=== PATIENT | female | born 1985 | race Caucasian/White ===

== ENCOUNTER 2022-06-20 19:25 | Inpatient (IN) | payer MEDICAID, SELFPAY ==
[2022-06-20 19:54] VITALS: PULSE 111; O2SAT 99
[2022-06-20 19:55] VITALS: TEMP 36.9
[2022-06-20 19:57] VITALS: BP 131/86; PULSE 113
[2022-06-20] MEDS: Lactated Ringers 1,000 ML 50 ML IV (20:00)
[2022-06-20 20:05] VITALS: BMI 29.0
[2022-06-20 20:28] LABS: Absolute Lymphocyte Count 2.04 X10^3/uL (0.83-4.51); Absolute Neutrophil Count 8.5 X10^3/uL (2.0-7.7); Basophil# 0.04 X10^3/uL; Basophil% 0.3 % (0-1); Eosinophil# 0.24 X10^3/uL; Hematocrit 33.3 % (37-47); Lymphocyte # 2.04 X10^3/ul (0.83-4.51); Lymphocyte % 17.3 % (19-41); Mean Corpuscular Hgb 27.8 pg (27.0-32.0); Mean Corpuscular Volume 84.1 fL (81-99); Mean Platelet Vol. 10.6 fl (6.2-12.0); Monocyte# 0.96 X10^3/uL; Monocyte% 8.1 % (0-10); NRBC Flagged by Analyzer 0 % (0-5); Neutrophil # 8.46 X10^3/uL (2.7-7.7); Neutrophil % 71.6 % (47-70); Platelet Count 303 K/mm3 (150-450); RBC Distribution Width CV 13.3 % (11.6-14.6); RBC Distribution Width SD 41.2 fl (35.1-43.9); Red Blood Count 3.96 M/mm3 (4.2-5.4); White Blood Count 11.8 K/mm3 (4.4-11.0)
[2022-06-20] MEDS: Ondansetron 4 MG/2 ML Vial IV (20:51)
[2022-06-20 20:57] LABS: Amphetamine Urine VISTA NEGATIVE (<1000 ng/mL); Barbiturate Urine VISTA NEGATIVE (< 200 ng/mL); Benzodiazepine Urine VISTA NEGATIVE (< 200 ng/mL); Cocaine Urine VISTA NEGATIVE (< 300 ng/mL); Ecstacy Urine VISTA NEGATIVE (< 500 ng/mL); Methadone Urine VISTA NEGATIVE (< 300 ng/mL); PCP Urine VISTA NEGATIVE (< 25 ng/mL); THC Urine VISTA POSITIVE (< 50 ng/mL); Vista UDS pH Range 5
[2022-06-20] MEDS: miSOPROStol 25 MCG TABLET PO (21:27)
[2022-06-20] MEDS: Mag Hydrox/Al Hydrox/Simeth 30 ML UDC PO (21:39)
[2022-06-20 21:42] VITALS: BP 128/79; PULSE 78; TEMP 36.7
[2022-06-20 21:43] LABS: Hepatitis C Antibody Non-Reactive (Nonreactive)
[2022-06-20 22:35] LABS: Chlamydia Trachomatis by PCR Negative (Negative); Neisserai gonorrhoeae by PCR Negative (Negative); Probe Check PASS; Sample Adequacy Control PASS; Specimen Processing Control PASS
[2022-06-21] VITALS (79 sets, daily range): BP systolic 79–151; BP diastolic 43–91; PULSE 54–190; RESP 15–18; TEMP 35.9–37.2; O2SAT 68–100
[2022-06-21] MEDS: miSOPROStol 25 MCG TABLET PO (01:47)
[2022-06-21] MEDS: Oxytocin 15 Units/NS 250ml 15 UNITS/250 ML IV.SOLN 2 UNITS IV (06:00)
[2022-06-21 06:22] LABS: ROM Internal Control Test YES-OK TO RESULT pt. (Internal QC)
[2022-06-21 06:23] LABS: ROM Patient Test POSITIVE (Negative)
[2022-06-21] MEDS: fentaNYL 100 MCG/2 ML Ampul IV (08:22)
--- NOTE | 2022-06-21 08:30 | PCM.HP.OB ---
HPI - General General Date of Admission: 06/20/22 HPI Narrative UMESH DUMONT, is a 37 F at 40.5 weeks who presents for scheduled induction of labor for AMA and postdates. complicated by tobacco and marijuana use. Maternal Data Information ANGELES Calculator Estimated Delivery Date Method Current WG Current Estimate 06/16/22 Manual 40w 5d PFSH PFSH Home Medications NK 06/20/22 [History Last Taken Unknown] Allergy/AdvReac Type Severity Reaction Status Date / Time No Known Allergies Allergy Verified 06/20/22 20:03 Surgical History History of surgery Social History Smoking Status: Current every day smoker History Elective abortions Hx Para 2 Spontaneous abortions Hx # Term Pregnancies Ectopic pregnancies Hx # Pregnancies Multiple births # of living children ROS Eyes Eyes: Denies blurry vision, change in vision or spots in vision ENT HEENT: Denies dizziness or headache(s) Cardiovascular Cardiovascular: Denies abdominal pain, chest pain or dyspnea Respiratory/Chest Respiratory/Chest: Denies cough, dyspnea, shortness of breath at rest or shortness of breath with exertion Gastrointestinal Gastrointestinal: Denies abdominal pain, diarrhea or vomiting Genitourinary Genitourinary: Denies change in urinary stream, difficulty urinating or dysuria Musculoskeletal Musculoskeletal: Reports none Integumentary Integumentary: Denies rash Neurologic Neurologic: Denies dizziness, headache(s), memory loss or weakness Psychiatric Psychiatric: Reports none Vital Signs Vital Signs Vital Signs: 06/20/22 19:54 06/20/22 19:54 06/20/22 19:57 Temperature Temperature Source Pulse Rate 111 H Blood Pressure 131/86 H BP Systolic 131 BP Diastolic 86 Pulse Ox 99 06/20/22 19:57 06/20/22 19:55 06/20/22 19:55 Temperature 98.5 F Temperature Source Temporal Pulse Rate 113 H Blood Pressure BP Systolic BP Diastolic Pulse Ox 06/20/22 21:42 06/20/22 21:42 06/20/22 21:42 Temperature Temperature Source Temporal Pulse Rate 78 Blood Pressure 128/79 H BP Systolic 128 BP Diastolic 79 Pulse Ox 06/20/22 21:42 06/21/22 01:39 06/21/22 01:40 Temperature 98.1 F Temperature Source Temporal Pulse Rate Blood Pressure 132/77 H BP Systolic 132 BP Diastolic 77 Pulse Ox 06/21/22 01:40 06/21/22 01:40 06/21/22 01:39 Temperature 98.5 F Temperature Source Pulse Rate 85 Blood Pressure BP Systolic BP Diastolic Pulse Ox 97 06/21/22 04:07 06/21/22 04:07 06/21/22 04:09 Temperature Temperature Source Pulse Rate 70 Blood Pressure 122/56 H BP Systolic 122 BP Diastolic 56 Pulse Ox 97 06/21/22 04:09 06/21/22 05:53 06/21/22 05:53 Temperature Temperature Source Pulse Rate 71 81 Blood Pressure BP Systolic BP Diastolic Pulse Ox 98 06/21/22 05:58 06/21/22 05:58 06/21/22 05:56 Temperature Temperature Source Temporal Pulse Rate 76 Blood Pressure BP Systolic BP Diastolic Pulse Ox 99 06/21/22 05:56 06/21/22 06:03 06/21/22 06:03 Temperature 97.0 F L Temperature Source Pulse Rate 80 Blood Pressure 151/74 H BP Systolic 151 BP Diastolic 74 Pulse Ox 06/21/22 06:03 06/21/22 06:03 06/21/22 06:08 Temperature Temperature Source Pulse Rate 87 83 Blood Pressure BP Systolic BP Diastolic Pulse Ox 99 06/21/22 06:08 06/21/22 06:13 06/21/22 06:13 Temperature Temperature Source Pulse Rate 80 Blood Pressure BP Systolic BP Diastolic Pulse Ox 98 98 06/21/22 06:18 06/21/22 06:18 06/21/22 06:23 Temperature Temperature Source Pulse Rate 88 87 Blood Pressure BP Systolic BP Diastolic Pulse Ox 98 06/21/22 06:23 06/21/22 06:28 06/21/22 06:28 Temperature Temperature Source Pulse Rate 79 Blood Pressure BP Systolic BP Diastolic Pulse Ox 98 97 06/21/22 06:33 06/21/22 06:33 06/21/22 06:38 Temperature Temperature Source Pulse Rate 74 78 Blood Pressure BP Systolic BP Diastolic Pulse Ox 98 06/21/22 06:38 06/21/22 06:43 06/21/22 06:43 Temperature Temperature Source Pulse Rate 75 Blood Pressure BP Systolic BP Diastolic Pulse Ox 98 100 06/21/22 06:48 06/21/22 06:48 06/21/22 06:53 Temperature Temperature Source Pulse Rate 89 93 Blood Pressure BP Systolic BP Diastolic Pulse Ox 99 06/21/22 06:53 06/21/22 06:58 06/21/22 06:58 Temperature Temperature Source Pulse Rate 100 Blood Pressure BP Systolic BP Diastolic Pulse Ox 97 99 06/21/22 07:04 06/21/22 07:04 06/21/22 07:09 Temperature Temperature Source Pulse Rate 98 83 Blood Pressure BP Systolic BP Diastolic Pulse Ox 97 06/21/22 07:09 06/21/22 07:12 06/21/22 07:12 Temperature Temperature Source Pulse Rate 76 Blood Pressure 134/91 H BP Systolic 134 BP Diastolic 91 Pulse Ox 98 06/21/22 07:14 06/21/22 07:14 06/21/22 07:15 Temperature Temperature Source Pulse Rate 85 85 Blood Pressure BP Systolic BP Diastolic Pulse Ox 97 06/21/22 07:15 Temperature Temperature Source Pulse Rate Blood Pressure BP Systolic BP Diastolic Pulse Ox 93 Weight Weight: 191 lb Body Mass Index (BMI) 29.0 Physical Exam Const alert, oriented x3 and no apparent distress General Appearance: cooperative Orientation / Consciousness: awake Exam Limitations: no limitations HEENT normocephalic Head and Scalp: normal to inspection Eyes General Eye: normal appearance of both eyes Neck full ROM and no lymphadenopathy Lymph Lymphatic: no lymphadenopathy noted Chest inspection of chest normal Resp normal respiratory effort, normal air movement and clear to auscultation bilaterally Effort and Inspection: able to speak in complete sentences and symmetric chest movement Cardio regular rate and regular rhythm GI normal to inspection, nondistended, normoactive bowel sounds Manual OB Exam: presentation cephalic Back/Spine normal ROM Extremity full ROM and no calf tenderness Skin no rashes or lesions noted General Skin Exam: no breakdown Neuro oriented x3 and CN's II-XII intact bilaterally Psych mental status grossly normal and thought process normal Labs Labs Labs: Blood Type O NEGATIVE Antibody Screen NEGATIVE Hct 33.3 % (37-47) L Hgb 11.0 g/dL (12.0-15.0) L Rhogam given: No Rubella- immune HB neg HC neg HIV- NR RPR- NR GBS neg Assessment & Plan (1) Encounter for induction of labor: (2) 40 weeks gestation of : (3) Tobacco use during : (4) Marijuana use: (5) Rh negative status during : PLAN: Plan Admit to labor and delivery Routine labs Start IV fluids and run per policy TAUS confirms vertex Cytotec 25 mcg PO x 2 doses completed SROM for clear fluid this morning /-2- forebag felt AROM for meconium fluid Pain medications/epidural when indicated Anticipate Dr. Day notified and is collaborating physician
[2022-06-21] MEDS: LACTATED RINGERS 500 ML 999 ML IV ×2 (08:31→10:37)
[2022-06-21] MEDS: Lactated Ringers 1,000 ML 200 ML IV (09:51)
--- NOTE | 2022-06-21 10:00 | NURSING ---
See Connect charting system for further notes about behavior and interactions of FOB during labor.
[2022-06-21] MEDS: fentaNYL-bupivacaine (epidural) 100 ML BAG EPIDURAL (10:13)
--- NOTE | 2022-06-21 10:58 | NURSING ---
Cachorro Barnett preparing to clamp the cord after delivery. Cachorro Barnett CNM asks CHAZ, Would you like to cut the cord?. CHAZ responds, I want you to leave is what I want. I want you out of this room.
[2022-06-21] MEDS: Oxytocin 15 Units/NS 250ml 15 UNITS/250 ML IV.SOLN 334 UNITS IV (11:00)
--- NOTE | 2022-06-21 11:08 | EX.PCM.OBRPT ---
Assessment & Plan (1) (spontaneous vaginal delivery): (2) Rh negative status during : Maternal Data Information ANGELES Calculator Estimated Delivery Date Method Current WG Current Estimate 06/16/22 Manual 40w 5d Vaginal Delivery Maternal Presentation Maternal Presentation: Medically Indicated Induction Maternal Presentation: at 40.5 weeks gestation for induction of labor for AMA and postdates. Type of Induction: Pitocin and Cytotec Medical Reason for Induction: Post term and - (AMA) Operative Information Date of Procedure: 06/21/22 Pre-Operative Diagnosis: Term gestation, induction of labor Post-Operative Diagnosis: , live female Surgery / Procedure Performed: Spontaneous Vaginal Delivery Type of Anesthesia: Epidural Estimated Blood Loss: 150 Time of Delivery: 10:55 Findings Description of Procedure: Called to patient's room due to patient involuntarily bearing down. Patient found to be complete dilation and +1 station. Comfortable with epidural anesthesia. Provided bedside support throughout pushing. head delivered over intact perineum followed immediately by anterior shoulder and remainder of infant body without traction. Vigorous female infant placed on maternal abdomen and was attended to by nursing staff. 3 vessel cord was clamped and cut after 3 minute delay by FOB. placed immediately skin to skin with patient. Cord blood collected and sent to lab. Pitocin IV started for active management of the third stage of labor. Placenta delivered spontaneously and intact. Meconium stained. Fundus firm 1 below U. Vagina and perineum intact. Hemostasis obtained. Vaginal sweep completed by me. EBL 150 cc. APGARS 8/9. Patient and bonding well at this time. Patient planning on bottle feeding. Dr. Day notified of delivery. Presentation: Vertex Amniotic Membrane Rupture Type: Spontaneous Time of Membrane Rupture: 0540 Amniotic Fluid Description: Clear (Meconium stained fluid after AROM of forebag) Placental Delivery Description: Spontaneous Placenta Disposition: [facility] Cord Vessel Description: 3 Vessels Cord Entanglement: None Nuchal Cord Compression: Without compression A Gender: Female (1 minute): 8 (5 minute): 9 Delayed Cord Clamping: Yes Post Vaginal Delivery Medications Given After Delivery: IV Pitocin Episiotomy Description: None Laceration: None Complication Complications: None
[2022-06-21] MEDS: 0.9% Saline Lock 10 ML Syringe IV (11:52)
--- NOTE | 2022-06-21 12:30 | NURSING ---
CHAZ states to this RN, If that nurse comes into this room again, I'm going to snap, referring to one of the staff nurses.
--- NOTE | 2022-06-21 14:57 | NURSING ---
Patient's FOB sleeping in rocking chair. Patient woke him up to ask him to watch the baby. FOB continues to sleep. Patient brings the baby in the crib in the bathroom with her. This RN asked patient about FOB's relationship with . Patient states that, The baby is a girl so that's why he isn't caring for her. Patient reports that she feels safe at home.
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
--- NOTE | 2022-06-21 17:35 | NURSING ---
Social work in with patient from approximately [id number].
--- NOTE | 2022-06-21 17:40 | NURSING ---
FOB has not held the baby.
--- NOTE | 2022-06-21 18:55 | NURSING ---
FORadha asked to speak to this RN privately. He asked if this RN could stay with baby and brother of baby while he and patient go outside. FORadha also apologized for behavior during labor. FOB tearful. States that he would never hurt anyone, loves his , and does not want anyone to ever think he would hurt anyone. He also states, I haven't held the baby yet because I want to be in a good place when I hold her. Babies can tell when you are tense or stressed and I want to be relaxed when I hold her. FORadha thanked this RN for their care and helping deliver their baby. Provided reassurance for FOB and emotional support.
--- NOTE | 2022-06-21 19:34 | NURSING ---
CHAZ asked to talk to this RN again privately. FOB tearful and again apologizing. Also thanked this RN again for care. Emotional support and reassurance provided.
[2022-06-21] MEDS: Naproxen 500 MG Tablet PO (20:05)
[2022-06-22] MEDS: Acetaminophen 500 MG Tablet 1000 MG PO ×2 (00:35→15:28)
[2022-06-22 03:31] VITALS: BP 116/74; PULSE 84; RESP 15; TEMP 36.8; O2SAT 97
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
--- NOTE | 2022-06-22 08:41 | DCINST_ITS ---
Discharge Instructions Diet Discharge Diet: No restrictions Activity May resume sexual activity in: 6-8 weeks Dressing / Incision Call your doctor if you observe: Fever of 101 or Higher, Inability to urinate, Using more than 1 pad per hour and Uncontrolled pain Follow Up Care Please Follow Up With: Nery Rojas MD Test Results: Test results from this visit will be discussed in further detail at your follow- up appointment, if applicable. Discharge Plan Admission Admit Date/Time: 06/20/22 19:25 Attending Provider: Linette Barnett Primary Care Provider: Care Physician,Jessica Primary Discharge Orders/Prescriptions Prescriptions: New acetaminophen 500 mg Tablet 1,000 mg PO Q6H PRN PRN (Reason: Pain 1-10 Or Fever) Qty: 0 0RF naproxen 500 mg Tablet 500 mg PO Q8H PRN PRN (Reason: Pain Score 1-3) Qty: 0 0RF Referrals / Follow Up: Care Physician,No Primary [Primary Care Provider] - Disposition Disposition (needs filled in before D/C Order can be placed): Home, Self Care
--- NOTE | 2022-06-22 08:41 | DCINST_ITS ---
Discharge Instructions Procedure Vaginal Delivery Diet Discharge Diet: No restrictions Activity May resume sexual activity in: 6-8 weeks Dressing / Incision Call your doctor if you observe: Fever of 101 or Higher, Inability to urinate, Using more than 1 pad per hour and Uncontrolled pain Follow Up Care Please Follow Up With: Nery Rojas MD When: 1-2 weeks post and again at 6 weeks post . [phone] Test Results: Test results from this visit will be discussed in further detail at your follow- up appointment, if applicable. Discharge Plan Admission Admit Date/Time: 06/20/22 19:25 Attending Provider: Linette Barnett Primary Care Provider: Care Physician,Jessica Primary Discharge Orders/Prescriptions Prescriptions: No Action NK Referrals / Follow Up: Care Physician,No Primary [Primary Care Provider] -
[2022-06-22 08:57] VITALS: BP 125/71; PULSE 79; RESP 16; TEMP 36.7
[2022-06-22 12:57] VITALS: BP 128/78; PULSE 71; RESP 17; TEMP 36.6
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
== END 2022-06-22 16:30 | disposition home or self-care (01) | DRG 560 ==
PROVIDERS: Obstetrics & Gynecology; Admitting Provider Advanced Practice Midwife; Visit Provider Advanced Practice Midwife
DX: O48.0 Post-term pregnancy (principal); Z37.0 Single live birth; O99.324 Drug use complicating childbirth; F12.90 Cannabis use, unspecified, uncomplicated; F17.200 Nicotine dependence, unspecified, uncomplicated; O99.334 Smoking (tobacco) complicating childbirth; O77.0 Labor and delivery complicated by meconium in amniotic fluid; Z3A.40 40 weeks gestation of pregnancy
CPT/HCPCS: 59025; 59050; 76815; 80307; 84112; 85025; 86803; 86850; 86900; 86901; 87491; 87591; 99218; J7120; A4216; G0378; J2405; J3490